=== PATIENT | male | born 1935 | race African-American/Black ===

== ENCOUNTER 2020-03-03 10:36 | Emergency (ER) | payer BC, OTHER ==
[~2020-03-03] VITALS: Ht 180.3 cm; Wt 78.0 kg
[2020-03-03] MEDS ORDERED: IBUPROFEN 600MG TABLET PO ONE (11:15)
[2020-03-03 12:20] VITALS: BP 137/79
== END 2020-03-03 13:02 | disposition home or self-care (01) ==
LOC: ER 10:58
DX: M25.552 Pain in left hip (principal)
CPT/HCPCS: 73502; 99283

== ENCOUNTER 2022-08-29 14:34 | Emergency (ER) | payer BC, OTHER ==
[~2022-08-29] VITALS: Ht 180.3 cm; Wt 86.0 kg
[2022-08-29 14:58] VITALS: BP 141/84
[2022-08-29 17:32] LABS: EOSINOPHILS % 5.9 % (0.0-5.0); HEMATOCRIT. 39.7 % (42.0-52.0); HEMOGLOBIN. 13.1 g/dL (14.0-18.0); LYMPHOCYTES % 40.7 % (20.0-50.0); MEAN CORPUSCULAR HEMOGLOBIN 28.1 pg (28.0-32.0); MEAN CORPUSCULAR VOLUME 85.4 fL (80.0-94.0); MONOCYTES % 9.1 % (2.0-8.0); NEUTROPHILS % 43.3 % (40.0-76.0); PLATELET 172 x1000/uL (130-400); RED BLOOD CELL COUNT 4.65 mill/uL (4.7-6.1)
[2022-08-29 17:43] LABS: CHLORIDE 108 mEq/L (98-107)
[2022-08-29] MEDS ORDERED: MECL-159 MT (22:44)
== END 2022-08-29 23:00 | disposition home or self-care (01) ==
LOC: ER 16:44
DX: R42 Dizziness and giddiness (principal); I10 Essential (primary) hypertension
CPT/HCPCS: 36415; 71045; 80053; 84484; 85025; 93005; 99285